=== PATIENT | female | born 1975 ===

== ENCOUNTER 2024-01-19 07:37 | Emergency (ER) | payer OTHER, SELFPAY ==
[2024-01-19 07:59] VITALS: BP 145/79; PULSE 72; RESP 17; TEMP 36.5; O2SAT 100; BMI 24.3
--- NOTE | 2024-01-19 08:01 | XR_ITS ---
Examination: Shoulder,right, 3 views Technique: Shoulder AP internal rotation, AP external rotation, Y view shoulder, 3 views Exam date and time : Indications: Onset acute right shoulder pain today Findings: Moderate osteopenia Moderate narrowing glenohumeral joint No shoulder fracture or dislocation No calcific tendinitis No AC joint separation Impression: Moderate narrowing glenohumeral joint No fracture or dislocation
--- NOTE | 2024-01-19 08:08 | PD.EDUPEX ---
Upper Extremity Injury RME/HPI General Chief Complaint: Extremity Injury, Upper Stated Complaint: right shoulder pain Time Seen by Provider: 01/19/24 07:46 Source: patient Arrival date/time: 01/19/24 07:37 This is a 48-year-old female who presents to the emergency department with acute pain to her right shoulder. 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 Mode of arrival: ambulatory Limitations: no limitations Related Data Home Medications ?Medication ?Instructions ?Recorded ?Confirmed albuterol sulfate 90 mcg/actuation 2 puff inhalation Q6H PRN sob 04/24/19 08/08/21 aerosol inhaler (ProAir HFA) loratadine 10 mg tablet 10 mg PO QDAY 08/08/21 08/08/21 Previous Rx's ?Medication ?Instructions ?Recorded cyclobenzaprine 5 mg tablet 5 mg PO Q8H PRN muscle spasm #7 01/19/24 tabs ibuprofen 600 mg tablet 600 mg PO Q8H PRN pain #30 tabs 01/19/24 Allergies Allergy/AdvReac Type Severity Reaction Status Date / Time prochlorperazine Allergy Severe Anaphylaxis Verified 08/08/21 08:09 Review of Systems Review of Systems Systems Reviewed: All systems reviewed, normal except as documented Narrative Review of Systems: Gen: No fever, no chills, no weight loss EYES: No discharge, no visual changes, no pain HEENT: No ear pain, no congestion, no sore throat PULM: No shortness of breath, no cough, no congestion CV: No chest pain, no dyspnea on exertion, no palpitations GI: No nausea, no vomiting, no diarrhea, no pain, no constipation : No frequency, no urgency,? no dysuria Musc/skel: Right shoulder pain, no back pain Skin: No rash? Psyc: No hallucinations, no depression Heme/Lymph: No easy bleeding or bruising tendencies Neuro: No weakness, no headache Past Medical History Past Medical History CARDIAC: Negative Congestive Heart Failure RESPIRATORY: Negative Chronic Obstructive Pulmonary Disease (COPD) GENITOURINARY: Negative Renal Disease ENDOCRINE: Negative Diabetes Mellitus Type 1 or Diabetes Mellitus Type 2 Surgical History SURGICAL: Positive Section Social History SMOKING STATUS: Never smoker SUBSTANCE USE: does not use ED Exam General Limitations: Present no limitations General appearance: Present alert and in no apparent distress Head Head exam: Present atraumatic Eye Eye exam: Present normal appearance, PERRL and EOMI ENT ENT exam: Present normal exam, normal oropharynx and mucous membranes moist Neck Neck exam: Present normal inspection, full ROM and trachea midline Chest Chest inspection: Present normal inspection and symmetric chest wall rise Respiratory Respiratory exam: Present normal lung sounds bilaterally Cardiovascular Cardiovascular exam: Present regular rate, normal rhythm and normal heart sounds Abdominal Exam Abdominal exam: Present soft and normal bowel sounds Extremities Exam Extremities exam: Present full ROM Expanded Upper Extremity Exam Shoulder exam: Present tenderness ( mild tenderness to palpation to the AC anterior right shoulder); Absent swelling, deformity, crepitus, dislocation or erythema Back Exam Back exam: Present normal inspection and full ROM Neurological Exam Neurological exam: Present alert, oriented X3 and CN II-XII intact Psychiatric Psychiatric exam: Present normal affect and normal mood Skin Skin exam: Present warm, dry, intact and normal color Course Quality Measures none Orders Category Date Time Status XR shoulder RT min 2V Stat Exams 01/19/24 08:01 Completed Ibuprofen Tab [Motrin Tab] Med 01/19/24 08:02 Discontinued 600 mg PO X1 ONE Vital Signs Vital signs: Vital Signs Temperature 97.7 F 01/19/24 07:59 Pulse Rate 72 01/19/24 07:59 Respiratory Rate 17 01/19/24 07:59 Blood Pressure 145/79 H 01/19/24 07:59 Pulse Oximetry (%) 100 01/19/24 07:59 Oxygen Delivery Method Room Air 01/19/24 07:59 Extremity Injury MDM Narrative MDM Narrative:: 48-year-old female works as a HOS[employer]ITAL SOC[employer] WORK[employer]. doing her rounds early this morning while turning the patient felt pain to her right shoulder. Reported tenderness radiating up to her lateral neck. X-ray demonstrates no acute fractures or dislocations. Pain medication given. Advised patient most likely shoulder Strain muscular. otherwise will discharge home with close follow-up with her PCP or Worker's Comp. doctor. NSAID and muscle relaxer sent to pharmacy.> Patient data External records reviewed:: [facility] previous records Clinical information provided by:: patient Social determinants that could affect healthcare access:: none Patient has the following chronic illnesses:: no How is presenting disease/condition affected by chronic disease/condition?: no chronic disease Evaluation data The following diagnostics were reviewed and interpreted by me:: radiology exam(s) Lab and/or radiology exams considered but not ordered:: yes Interpretation Summary: Exam date and time : Indications: Onset acute right shoulder pain today Findings: Moderate osteopenia Moderate narrowing glenohumeral joint No shoulder fracture or dislocation No calcific tendinitis No AC joint separation Impression: Moderate narrowing glenohumeral joint No fracture or dislocation Medications / Prescriptions Medications or Prescriptions considered but not ordered:: no Medication administrations:: Medication Administration History Discontinued Medications Ibuprofen (Ibuprofen Tab 600 Mg Tablet) 600 mg PO X1 ONE Stop: 01/19/24 08:03 Last Admin: 01/19/24 08:33 Dose: 600 mg Documented By: [facility] All medications administered and effective Consultations Consultation(s) initiated? (list below): No Diagnosis Upper Extremity Injury Differential Diagnosis: dislocation of shoulder and fracture of humerus Most likely diagnosis given after review of the tests above:: Shoulder sprain Admission Indicated Admission indicated?: not indicated Admission Request Was there a request for admission?: No Disposition Plan Disposition Plan: Discharge Discharge Attestation Discharge Attestation: The patient and all family members were given an opportunity to ask questions and understood the discharge instructions. Discharge instructions specifically effects, indications for sooner follow up or return to the emergency department, and the expected course of current diagnosis. Patient condition: Stable Discharge Plan Plan Patient Disposition: HOME (Self Care) Patient condition on transfer: Stable Prescriptions/Referrals Prescriptions/Med Rec: New ibuprofen 600 mg tablet 600 mg PO Q8H PRN (Reason: pain) Qty: 30 0RF cyclobenzaprine 5 mg tablet 5 mg PO Q8H PRN (Reason: muscle spasm) Qty: 7 0RF No Action albuterol sulfate [ProAir HFA] 90 mcg/actuation HFA aerosol inhaler 2 puff inhalation Q6H PRN (Reason: sob) loratadine 10 mg Tablet 10 mg PO QDAY Referrals: Cornelius Murphy MD [Primary Care Provider] - In 1 week Problem List Clinical Impression: Right shoulder strain Patient/Caregiver Discharge Instructions Discharge Activity: activity as tolerated Education Materials: ED Muscle Strain, Extremity Additional Instructions: It is very important that you follow-up with your doctor or Worker's Comp. doctor for follow-up care. I did send you an anti-inflammatory and muscle relaxer to help slightly with your symptoms. Return to the emergency department with any worsening symptoms or change in condition. Print Language: [place] Stand Alone Forms: Krissy Award Info., Work/School Release, Patient Portal Info Letter MD Attestation Attestation The patient was seen by the midlevel practitioner. I, the co-signing physician, was present during the entire ER visit. While I did not physically examine the patient, I was available for consultation as needed.
[2024-01-19] MEDS: IBUPROFEN TAB 600 MG TABLET PO (08:33)
== END 2024-01-19 10:01 | disposition home or self-care (01) ==
PROVIDERS: Emergency Provider Emergency Medicine; PCP Family Medicine
DX: S46.911A Strain of unspecified muscle, fascia and tendon at shoulder and upper arm level, right arm, initial encounter (principal); X50.9XXA Other and unspecified overexertion or strenuous movements or postures, initial encounter; Y93.F2 Activity, caregiving, lifting; Y92.239 Unspecified place in hospital as the place of occurrence of the external cause; Y99.0 Civilian activity done for income or pay
CPT/HCPCS: 73030; 99283; A9270